=== PATIENT | female | born 1935 | race Hispanic/Latino ===

== ENCOUNTER 2020-12-14 11:40 | Inpatient (IN) | payer MEDICARE ==
--- NOTE | 2020-12-14 12:02 | Emergency Department Report ---
ED General Adult HPI - General Chief complaint: Dyspnea/Respdistress Stated complaint: SOB PUI?: Yes Time Seen by Provider: 12/14/20 12:00 Source: patient, RN notes reviewed Mode of arrival: Stretcher Limitations: Physical Limitation - History of Present Illness Initial comments: The patient was evaluated in the emergency department for symptoms described in the history of present illness. He/she was evaluated in the context of the global COVID-19 pandemic, which necessitated consideration that the patient might be at risk for infection with the virus that causes COVID-19. Institutional protocols and algorithms that pertain to the evaluation of patients at risk for COVID-19 are in a state of rapid change based on infor mation released by regulatory bodies including the CDC and federal and state organizations. These policies and algorithms were followed during the patient's care in the emergency department. Please note that these policies, procedures and recommendations changed on a rapid basis. During the entire history and physical examination, I had on complete personal protective equipment. This is an 85-year-old female. She is not known to myself previously. She lives in [facility]. She recently moved to [place] to stay with her son. She reports being on systemic anticoagulation, Eliquis, and also reports a history of CHF and hypertension, although she does not know her ejection fraction. She is also supposed to be on home oxygen, 2 to 3 L. She reports that she was recently discharged from [facility] a few weeks/months ago, on home oxygen. However, she recently moved to [place], to stay with family, and reports that for the past 2 weeks, she has been without home oxygen, as she forgot to bring her oxygen cord, and she thinks it might have broken. The patient presents to the ER today with a complaint of acute on chronic shortness of breath. She has no physical pain, but has orthopnea, and feels like she cannot breathe. She denies travel, surgery, immobilization, and she endorses compliance with systemic anticoagulation. She has received 1 round of [employer] Covid vaccination. She denies loss of taste and smell. Shortness of breath increases with physical exertion and decreases with rest. She reports that she is absolutely not able to sleep flat. She does not feel that she has gained weight. -: Gradual, days(s) Severity scale (0 -10): 0 Consistency: constant Improves with: rest Worsens with: movement - Related Data Home Medications Medication Instructions Recorded Confirmed Last Taken Divalproex ER [DepaKOTE ER] 250 mg PO 12/14/20 Unknown Allergies Allergy/AdvReac Type Severity Reaction Status Date / Time Sulfa (Sulfonamide Allergy Unknown Unknown Verified 12/14/20 12:02 Antibiotics) ED Review of Systems ROS: Stated complaint: SOB Other details as noted in HPI Constitutional: malaise, weakness, other (Denies loss of taste and smell). denies: fever ENT: congestion Respiratory: orthopnea, shortness of breath, SOB with exertion, SOB at rest. denies: cough Cardiovascular: dyspnea on exertion, orthopnea. denies: chest pain Gastrointestinal: denies: nausea, vomiting, hematemesis, melena Genitourinary: denies: dysuria Musculoskeletal: back pain (Chronic back pain) Neurological: weakness Psychiatric: anxiety Hematological/Lymphatic: denies: easy bleeding ED Past Medical Hx - Social History Smoking Status: Never Smoker - Medications Home Medications: Home Medications Medication Instructions Recorded Confirmed Last Taken Type Divalproex ER [DepaKOTE ER] 250 mg PO 12/14/20 Unknown History ED Physical Exam - General Limitations: Physical Limitation General appearance: alert, anxious, in distress, obese - Head Head exam: Present: atraumatic, normocephalic - Eye Eye exam: Present: normal appearance, EOMI. Absent: nystagmus - ENT ENT exam: Present: normal exam, normal orophraynx, mucous membranes moist, nor mal external ear exam - Neck Neck exam: Present: normal inspection, full ROM - Respiratory Respiratory exam: Present: respiratory distress, rales, rhonchi, accessory muscle use - Cardiovascular Cardiovascular Exam: Present: regular rate, normal rhythm, normal heart sounds, JVD. Absent: bradycardia, tachycardia, irregular rhythm, systolic murmur, diastolic murmur, rubs, gallop - GI/Abdominal GI/Abdominal exam: Present: soft. Absent: distended, tenderness, guarding, rebound, rigid, pulsatile mass - Extremities Exam Extremities exam: Present: normal inspection, full ROM, other (2+ pulses noted in the bilateral upper and lower extremities. There is no palpable cord. negative Homans sign. Muscular compartments are soft. The pelvis is stable.). Absent: pedal edema, calf tenderness - Back Exam Back exam: Present: normal inspection, full ROM. Absent: tenderness, CVA tenderness (R), CVA tenderness (L), paraspinal tenderness, vertebral tenderness - Neurological Exam Neurological exam: Present: alert, other (No facial droop. Tongue midline. Extraocular movements intact bilaterally. Facial sensation intact to light touch in V1, V2, V3 distribution bilaterally. 5 and a 5 strength in 4 extremities. Sensation intact to light touch in 4 extremities.) - Psychiatric Psychiatric exam: Present: anxious - Skin Skin exam: Present: warm, dry, intact, normal color. Absent: rash ED Course Vital Signs 12/14/20 12/14/20 12/14/20 11:54 11:55 12:01 Temperature 98.2 F Pulse Rate 79 74 Respiratory 27 H 29 H Rate Blood Pressure O2 Sat by Pulse 100 100 Oximetry 12/14/20 12/14/20 12/14/20 12:15 12:31 12:39 Temperature Pulse Rate 83 73 Respiratory 22 21 18 Rate Blood Pressure 198/90 O2 Sat by Pulse 95 99 Oximetry 12/14/20 12/14/20 12/14/20 12:45 13:01 13:17 Temperature Pulse Rate 69 67 Respiratory 25 H 25 H Rate Blood Pressure 174/70 174/72 O2 Sat by Pulse 100 100 97 Oximetry - Reevaluation(s) Reevaluation #1: 12/14/20 14:32 Arterial blood gas demonstrates the following findings: pH 7.421/PaCO2 40.2/PaO2 77/HCO3 25.5. ED Medical Decision Making - Lab Data Result diagrams: 12/14/20 12:20 12/14/20 12:20 Vital Signs 12/14/20 12/14/20 12/14/20 11:54 11:55 12:01 Temperature 98.2 F Pulse Rate 79 74 Respiratory 27 H 29 H Rate Blood Pressure O2 Sat by Pulse 100 100 Oximetry 12/14/20 12/14/20 12/14/20 12:15 12:31 12:39 Temperature Pulse Rate 83 73 Respiratory 22 21 18 Rate Blood Pressure 198/90 O2 Sat by Pulse 95 99 Oximetry 12/14/20 12/14/20 12/14/20 12:45 13:01 13:17 Temperature Pulse Rate 69 67 Respiratory 25 H 25 H Rate Blood Pressure 174/70 174/72 O2 Sat by Pulse 100 100 97 Oximetry Lab Results 12/14/20 12/14/20 12/14/20 Range/Units 12:20 12:20 12:20 WBC 7.6 (4.5-11.0) K/mm3 RBC 4.24 (3.65-5.03) M/mm3 Hgb 12.3 (10.1-14.3) gm/dl Hct 36.5 (30.3-42.9) % MCV 86 (79-97) fl MCH 29 (28-32) pg MCHC 34 (30-34) % RDW 14.9 (13.2-15.2) % Plt Count 186 (140-440) K/mm3 Lymph % (Auto) 36.1 H (13.4-35.0) % [place] % (Auto) 11.6 H (0.0-7.3) % Eos % (Auto) 3.6 (0.0-4.3) % Baso % (Auto) 0.4 (0.0-1.8) % Lymph # (Auto) 2.8 (1.2-5.4) K/mm3 [place] # (Auto) 0.9 H (0.0-0.8) K/mm3 Eos # (Auto) 0.3 (0.0-0.4) K/mm3 Baso # (Auto) 0.0 (0.0-0.1) K/mm3 Seg Neutrophils % 48.3 (40.0-70.0) % Seg Neutrophils # 3.7 (1.8-7.7) K/mm3 PT 15.3 H (12.2-14.9) Sec. INR 1.16 H (0.87-1.13) D-Dimer 157.23 (0-234) ng/mlDDU Sodium 139 (137-145) mmol/L Potassium 4.3 (3.6-5.0) mmol/L Chloride 101.8 (98-107) mmol/L Carbon Dioxide 28 (22-30) mmol/L Anion Gap 14 mmol/L BUN 16 (7-17) mg/dL Creatinine 0.5 L (0.6-1.2) mg/dL Estimated GFR > 60 ml/min BUN/Creatinine Ratio 32 % Glucose 89 (65-100) mg/dL Lactic Acid (0.7-2.0) mmol/L Calcium 9.1 (8.4-10.2) mg/dL Magnesium 1.60 L (1.7-2.3) mg/dL Ferritin (10.0-200.0) ng/mL Total Bilirubin 0.50 (0.1-1.2) mg/dL AST 17 (5-40) units/L ALT 9 (7-56) units/L Alkaline Phosphatase 53 (35-129) units/L Lactate Dehydrogenase 152 (91-180) units/L Total Creatine Kinase 20 L (30-135) units/L Troponin T < 0.010 (0.00-0.029) ng/mL C-Reactive Protein 0.20 (0.00-1.30) mg/dL NT-Pro-B Natriuret Pep 887.9 (0-900) pg/mL Total Protein 6.8 (6.3-8.2) g/dL Albumin 3.7 L (3.9-5) g/dL Albumin/Globulin Ratio 1.2 % Procalcitonin (<0.15) ng/mL 12/14/20 12/14/20 12/14/20 Range/Units 12:20 12:20 12:20 WBC (4.5-11.0) K/mm3 RBC (3.65-5.03) M/mm3 Hgb (10.1-14.3) gm/dl Hct (30.3-42.9) % MCV (79-97) fl MCH (28-32) pg MCHC (30-34) % RDW (13.2-15.2) % Plt Count (140-440) K/mm3 Lymph % (Auto) (13.4-35.0) % [place] % (Auto) (0.0-7.3) % Eos % (Auto) (0.0-4.3) % Baso % (Auto) (0.0-1.8) % Lymph # (Auto) (1.2-5.4) K/mm3 [place] # (Auto) (0.0-0.8) K/mm3 Eos # (Auto) (0.0-0.4) K/mm3 Baso # (Auto) (0.0-0.1) K/mm3 Seg Neutrophils % (40.0-70.0) % Seg Neutrophils # (1.8-7.7) K/mm3 PT (12.2-14.9) Sec. INR (0.87-1.13) D-Dimer (0-234) ng/mlDDU Sodium (137-145) mmol/L Potassium (3.6-5.0) mmol/L Chloride (98-107) mmol/L Carbon Dioxide (22-30) mmol/L Anion Gap mmol/L BUN (7-17) mg/dL Creatinine (0.6-1.2) mg/dL Estimated GFR ml/min BUN/Creatinine Ratio % Glucose (65-100) mg/dL Lactic Acid 1.20 (0.7-2.0) mmol/L Calcium (8.4-10.2) mg/dL Magnesium (1.7-2.3) mg/dL Ferritin 58.4 (10.0-200.0) ng/mL Total Bilirubin (0.1-1.2) mg/dL AST (5-40) units/L ALT (7-56) units/L Alkaline Phosphatase (35-129) units/L Lactate Dehydrogenase (91-180) units/L Total Creatine Kinase (30-135) units/L Troponin T (0.00-0.029) ng/mL C-Reactive Protein (0.00-1.30) mg/dL NT-Pro-B Natriuret Pep (0-900) pg/mL Total Protein (6.3-8.2) g/dL Albumin (3.9-5) g/dL Albumin/Globulin Ratio % Procalcitonin < 0.05 (<0.15) ng/mL - EKG Data -: EKG Interpreted by Fl EKG shows normal: sinus rhythm Rate: normal - EKG Data When compared to previous EKG there are: previous EKG unavailable 12/14/20 14:00 EKG interpreted at 12: 10 Sinus rhythm, 73 bpm. Normal axis, QTC 434 ms, motion artifact, premature atrial complex, abnormal EKG, not a STEMI. No prior for comparison. - Radiology Data Radiology results: pending, report reviewed, image reviewed [facility] [address] [place] [address] XRay Report Signed Patient: BABATUNDE LEON MR#: [id number] : 1935 Acct:[id number] Age/Sex: 85 / F ADM Date: 12/14/20 Loc: ED Attending Dr: Ordering Physician: STEPH KHAN MD Date of Service: 12/14/20 Procedure(s): XR chest 1V ap Accession Number(s): [id number] cc: STEPH KHAN MD Fluoro Time In Minutes: CHEST 1 VIEW INDICATION: Dyspnea. COMPARISON: None FINDINGS: Support devices: None. Heart: Within normal limits. Lungs/Pleura: No acute air space or interstitial disease. No pleural effusion or pneumothorax. The right hemidiaphragm is elevated or eventrated. Additional findings: None. IMPRESSION: Elevated right hemidiaphragm, otherwise, unremarkable exam. Signer Name: Mouna Cooper Jr, MD Signed: 12/14/2020 12:37 PM Workstation Name: [id number] Transcribed By: TTR Dictated By: MOUNA COOPER JR, MD Electronically Authenticated By: MOUNA COOPER JR, MD Signed Date/Time: 12/14/20 1237 DD/ 1236 TD/TT: - Medical Decision Making Differential diagnosis, including but not limited to: COVID-19, CHF, reactive airways disease, pneumonia, pulmonary embolism Assessment and plan: 85-year-old female, who is tachypneic, with JVD, crackles, rales, orthopnea, shortness of breath/dyspnea, who is systemically anticoagulated, who reports compliance with her medications, without DVT or p ulmonary embolism risk factors, negative D-dimer, low risk by Wells criteria for pulmonary embolism, who has completed 1 round of COVID-19 vaccination, presenting with acute shortness of breath, and the aforementioned physical exam findings, suspicious for CHF exacerbation, versus less likely reactive airways disease. Patient may have a component of undiagnosed obstructive sleep apnea as well. She is also home oxygen dependent and does not have home oxygen. Given acute symptomatology, elevated blood pressure, physical exam findings, admit for diuresis, reinitiation of medications, reinitiation of oxygen therapy. Patient is amenable to this plan of care. Place patient on isolation, although I think Covid is unlikely. Patient is amenable to this plan of care. Hospital physician, Dr. Dutton to admit patient to the medical service Critical Care Time: Yes Critical care time in (mins) excluding proc time.: 35 Critical care attestation.: If time is entered above; I have spent that time in minutes in the direct care of this critically ill patient, excluding procedure time. ED Disposition Clinical Impression: Acute exacerbation of CHF (congestive heart failure), Hypertensive urgency, Hypomagnesemia, Suspected 2019 novel coronavirus infection, Acute dyspnea Disposition: OP ADMIT IP TO THIS HOSP Is pt being admited?: Yes Does the pt Need Aspirin: No Condition: Good Referrals: PRIMARY CARE, [Primary Care Provider] - 3-5 Days
--- NOTE | 2020-12-14 12:41 | XRay Report ---
CHEST 1 VIEW INDICATION: Dyspnea. COMPARISON: None FINDINGS: Support devices: None. Heart: Within normal limits. Lungs/Pleura: No acute air space or interstitial disease. No pleural effusion or pneumothorax. The ri ght hemidiaphragm is elevated or eventrated. Additional findings: None. IMPRESSION: Elevated right hemidiaphragm, otherwise, unremarkable exam. Signer Name: Goran Cooper Jr, MD Signed: 12/14/2020 12:37 PM Workstation Name: [id number]
[2020-12-14 13:10] LABS: INR 1.16 (0.87-1.13)
[2020-12-14 13:11] LABS: Basophils % (Auto) 0.4 % (0.0-1.8); Eosinophils # (Auto) 0.3 K/mm3 (0.0-0.4); Eosinophils % (Auto) 3.6 % (0.0-4.3); Hematocrit 36.5 % (30.3-42.9); Hemoglobin 12.3 gm/dl (10.1-14.3); Lymphocytes # (Auto) 2.8 K/mm3 (1.2-5.4); Lymphocytes % (Auto) 36.1 % (13.4-35.0); Mean Corpuscular HGB Conc 34 % (30-34); Mean Corpuscular Volume 86 fl (79-97); Monocytes # (Auto) 0.9 K/mm3 (0.0-0.8); Monocytes % (Auto) 11.6 % (0.0-7.3); Platelet Count 186 K/mm3 (140-440); Red Blood Count 4.24 M/mm3 (3.65-5.03); Red Cell Distribution Width 14.9 % (13.2-15.2)
[2020-12-14 13:18] LABS: Alanine Aminotransferase 9 units/L (7-56); Albumin 3.7 g/dL (3.9-5); Blood Urea Nitrogen 16 mg/dL (7-17); Calcium 9.1 mg/dL (8.4-10.2); Hemolysis Index 1
[2020-12-14 13:19] LABS: BUN/Creatinine Ratio 32
[2020-12-14] MEDS ORDERED: MAGNESIUM SULFATE 2 GM/50 ML BAG IV ONE (13:33)
[2020-12-14] MEDS ORDERED: FUROSEMIDE 40 MG/4 ML INJ IV ONE (13:33)
[2020-12-14] MEDS ORDERED: hydrALAZINE 20 MG/1 ML INJ IV ONE (13:33)
[2020-12-14] MEDS ORDERED: ALBUTEROL 2.5 MG/3 ML NEBU IH ONE (13:56)
[2020-12-14] MEDS ORDERED: IPRATROPIUM 0.02% NEBU 2.5 ML IH ONE (13:56)
--- NOTE | 2020-12-14 14:28 | History and Physical Report ---
History of Present Illness Chief complaint: I am short of breath History of present illness: 85 YO Female with CHF, HTN, Seizure Disorder, Chronic Respiratory Failure noncompliant with home oxygen presents to ED for evaluation. Patient reports "I feel short of breath". Patient states that she has experienced shortness of breath and generalized weakness over the past 2 weeks with worsening symptoms over the same timeframe. Pt acknowledges noncompliance with home oxygen. Patient knowledges dyspnea on exertion, dyspnea at rest, decreased exercise tolerance, orthopnea, as well as paroxysmal nocturnal dyspnea. EMS notified and upon arrival the patient was found to be in distress and subsequent transported to [facility] for further care and evaluation of the above aforementioned symptoms. The patient was seen and evaluated in the emergency department. All lab and imaging studies reviewed. Patient found to have symptoms consistent with CHF decompensation suspected secondary to lack of supplemental oxygen. Patient placed in observation status and admitted to telemetry floor. Patient placed on submental oxygen. Patient denies fever, chills, chest pain, palpitation, productive cough, skin rash, recent ill contact, or known exposure to COVID-19. No prior admission for review. All medication listed at time of admission has been reconciled. Advanced care planning conducted in ED. Past History Past Medical History: heart failure, hypertension, seizures, other (See HPI) Past Surgical History: No surgical history, Other (Reviewed) Social history: single. denies: smoking, alcohol abuse, prescription drug abuse Family history: hypertension (This morning) Medications and Allergies Allergies Allergy/AdvReac Type Severity Reaction Status Date / Time Sulfa (Sulfonamide Allergy Unknown Unknown Verified 12/14/20 12:02 Antibiotics) Home Medications Medication Instructions Recorded Confirmed Last Taken Type Divalproex ER [DepaKOTE ER] 250 mg PO 12/14/20 Unknown History Review of Systems Constitutional: weakness, no weight loss, no weight gain, no fever, no chills Ears, nose, mouth and throat: no ear pain, no ear discharge, no tinnitis, no decreased hearing, no nose pain, no nasal congestion Breasts: no change in shape, no swelling, no mass Cardiovascular: orthopnea, shortness of breath, dyspnea on exertion, paroxysmal nocturnal dyspnea, decreased exercise tolerance, no chest pain, no palpitations, no rapid/irregular heart beat, no edema, no syncope Respiratory: no cough, no cough with sputum, no excessive sputum Gastrointestinal: no nausea, no vomiting, no diarrhea, no constipation Genitourinary Female: no dysmenorrhea, no pelvic pain, no flank pain, no dysuria, no urinary frequency, no urgency Rectal: no pain, no incontinence, no bleeding Musculoskeletal: no neck stiffness, no neck pain, no arm numbness/tingling, no low back pain, no leg numbness/tingling Integumentary: no rash, no pruritis, no redness, no sores Neurological: no paralysis, no weakness, no parathesias, no numbness, no tingling, no seizures, no syncope Psychiatric: anxiety, no memory loss, no sleep disturbances, no hypersomnia, no change in libido Endocrine: no cold intolerance, no heat intolerance, no excessive thirst, no excessive sweating Hematologic/Lymphatic: no easy bruising, no easy bleeding Allergic/Immunologic: no urticaria, no wheezing Exam - Constitutional Vitals: Temp Pulse Resp BP Pulse Ox 98.2 F 67 25 H 174/72 97 12/14/20 11:55 12/14/20 13:01 12/14/20 13:01 12/14/20 13:01 12/14/20 13:17 General appearance: Present: mild distress - EENT Eyes: Present: PERRL ENT: hearing intact, clear oral mucosa - Neck Neck: Present: supple, normal ROM, masses or JVD - Respiratory Respiratory effort: labored, accessory muscle use Respiratory: bilateral: diminished, rales - Cardiovascular Heart Sounds: Present: S1 & S2. Absent: rub, click - Extremities Extremities: pulses symmetrical Extremity abnormal: edema Peripheral Pulses: within normal limits - Abdominal General gastrointestinal: Present: soft, non-tender, non-distended, normal bowel sounds Female genitourinary: Present: normal - Integumentary Integumentary: Present: clear, warm, dry - Musculoskeletal Musculoskeletal: gait normal, strength equal bilaterally - Psychiatric Psychiatric: appropriate mood/affect, intact judgment & insight - Neurologic Neurologic: CNII-XII intact, moves all extremities HEART Score - HEART Score Troponin: Troponin T < 0.010 ng/mL (0.00-0.029) 12/14/20 12:20 Results - Labs CBC & Chem 7: 12/14/20 12:20 12/14/20 12:20 Labs: Abnormal lab results 12/14/20 12/14/20 12/14/20 Range/Units 12:20 12:20 12:20 Lymph % (Auto) 36.1 H (13.4-35.0) % [place] % (Auto) 11.6 H (0.0-7.3) % [place] # (Auto) 0.9 H (0.0-0.8) K/mm3 PT 15.3 H (12.2-14.9) Sec. INR 1.16 H (0.87-1.13) Creatinine 0.5 L (0.6-1.2) mg/dL Magnesium 1.60 L (1.7-2.3) mg/dL Total Creatine Kinase 20 L (30-135) units/L Albumin 3.7 L (3.9-5) g/dL Assessment and Plan - Patient Problems (1) Acute exacerbation of CHF (congestive heart failure) Current Visit: Yes Status: Acute Qualifiers: Heart failure type: diastolic Qualified Code(s): I50.33 - Acute on chronic diastolic (congestive) heart failure Plan to address problem: Strict I's/O, monitor urine output every shift, diuresis with Lasix, supplemental oxygen, pulse oximetry, afterload reduction, blood pressure control. (2) Acute dyspnea Current Visit: Yes Status: Acute Plan to address problem: Supplemental oxygen, pulse oximetry, home oxygen evaluation, (3) Hypertensive urgency Current Visit: Yes Status: Acute Plan to address problem: Monitor blood pressure every shift, continue medical management. (4) DVT prophylaxis Current Visit: Yes Status: Acute Plan to address problem: SCD to bilateral lower extremities while in bed, patient is ambulatory (5) Advance care planning Current Visit: Yes Status: Acute Plan to address problem: Disease education conducted, care plan discussed, diagnosis discussed, patient counseled regarding compliance with submental oxygen, patient is full code, patient knowledges understanding and agreement with care plan, +30 minutes.
[2020-12-14] MEDS ORDERED: ALBUTEROL 2.5 MG/3 ML NEBU IH PRN (14:50)
[2020-12-14] MEDS ORDERED: ONDANSETRON 4 MG/2 ML INJ IV PRN (14:50)
[2020-12-14] MEDS ORDERED: ALPRAZolam 0.5 MG TAB PO PRN (14:52)
[2020-12-14] MEDS: ACETAMINOPHEN 325 MG TAB PO PRN (19:45)
[2020-12-14] MEDS: FUROSEMIDE 20 MG/2 ML INJ IV SCH (19:50)
[2020-12-15] MEDS: FUROSEMIDE 20 MG/2 ML INJ IV SCH ×2 (05:21→17:50)
[2020-12-15 06:26] LABS: BUN/Creatinine Ratio 24; Blood Urea Nitrogen 12 mg/dL (7-17); Calcium 9.1 mg/dL (8.4-10.2); Hemolysis Index 12
[2020-12-15 07:59] LABS: Bacteria,Urine 1+ /HPF (Negative); Bilirubin,Urine NEG (Negative); Blood,Urine MOD (Negative); Color,Urine Yellow (Yellow); Protein,Urine <15 mg/dL mg/dL (Negative); Urobilinogen,Urine < 2.0 mg/dL (<2.0)
--- NOTE | 2020-12-15 08:48 | Progress Note ---
Assessment and Plan Assessment and plan: (1) Acute exacerbation of CHF (congestive heart failure) Current Visit: Yes Status: Acute Qualifiers: Heart failure type: diastolic Qualified Code(s): I50.33 - Acute on chronic diastolic (congestive) heart failure Plan to address problem: Strict I's/O, monitor urine output every shift, diuresis with Lasix, supplemental oxygen, pulse oximetry, afterload reduction, blood pressure control. (2) Acute dyspnea Current Visit: Yes Status: Acute Plan to address problem: Supplemental oxygen, pulse oximetry, home oxygen evaluation, (3) Hypertensive urgency Current Visit: Yes Status: Acute Plan to address problem: Monitor blood pressure every shift, continue medical management. (4) DVT prophylaxis Current Visit: Yes Status: Acute Plan to address problem: SCD to bilateral lower extremities while in bed, patient is ambulatory (5) Advance care planning Current Visit: Yes Status: Acute Plan to address problem: Disease education conducted, care plan discussed, diagnosis discussed, patient counseled regarding compliance with submental oxygen, patient is full code, guerrero ent knowledges understanding and agreement with care plan, +30 minutes. 12/15/20 -CHF; no echo in the chart. Echo ordered. -Patient moved from [facility] and need a glass handler. Cardiology consult placed. -We will get records from [facility]. Patient states she has history of congestive heart failure. -PT OT evaluation History Interval history: patient was seen and evaluated this morning Patient was on 3 L of oxygen She states she was using 2 L of oxygen at home Hospitalist Physical - Physical exam Narrative exam: Not in cardiopulmonary distress. The patient appeared well nourished and normally developed. Vital signs as documented. Head exam is unremarkable. No scleral icterus . Neck is without jugular venous distension, thyromegaly, or carotid bruits. Lungs are clear to auscultation. Cardiac exam reveals regular rate and Rhythm. Abdominal exam reveals normal bowel sounds, nontender, no organomegaly. Extremities are nonedematous and both femoral and pedal pulses are normal. MULTIMEDIA PROGRAMMER: Alert and oriented 3. No focal weakness. - Constitutional Vitals: Temp Pulse Resp BP Pulse Ox 97.7 F 70 18 169/74 100 12/15/20 05:30 12/15/20 05:30 12/15/20 05:30 12/15/20 05:30 12/15/20 05:30 General appearance: Present: mild distress HEART Score - HEART Score Troponin: Troponin T < 0.010 ng/mL (0.00-0.029) 12/14/20 12:20 Results - Labs CBC & Chem 7: 12/14/20 12:20 12/15/20 05:21 Labs: Laboratory Last Values WBC 7.6 K/mm3 (4.5-11.0) 12/14/20 12:20 RBC 4.24 M/mm3 (3.65-5.03) 12/14/20 12:20 Hgb 12.3 gm/dl (10.1-14.3) 12/14/20 12:20 Hct 36.5 % (30.3-42.9) 12/14/20 12:20 MCV 86 fl (79-97) 12/14/20 12:20 MCH 29 pg (28-32) 12/14/20 12:20 MCHC 34 % (30-34) 12/14/20 12:20 RDW 14.9 % (13.2-15.2) 12/14/20 12:20 Plt Count 186 K/mm3 (140-440) 12/14/20 12:20 Lymph % (Auto) 36.1 % (13.4-35.0) H 12/14/20 12:20 [place] % (Auto) 11.6 % (0.0-7.3) H 12/14/20 12:20 Eos % (Auto) 3.6 % (0.0-4.3) 12/14/20 12:20 Baso % (Auto) 0.4 % (0.0-1.8) 12/14/20 12:20 Lymph # (Auto) 2.8 K/mm3 (1.2-5.4) 12/14/20 12:20 [place] # (Auto) 0.9 K/mm3 (0.0-0.8) H 12/14/20 12:20 Eos # (Auto) 0.3 K/mm3 (0.0-0.4) 12/14/20 12:20 Baso # (Auto) 0.0 K/mm3 (0.0-0.1) 12/14/20 12:20 Seg Neutrophils % 48.3 % (40.0-70.0) 12/14/20 12:20 Seg Neutrophils # 3.7 K/mm3 (1.8-7.7) 12/14/20 12:20 PT 15.3 Sec. (12.2-14.9) H 12/14/20 12:20 INR 1.16 (0.87-1.13) H 12/14/20 12:20 D-Dimer 157.23 ng/mlDDU (0-234) 12/14/20 12:20 Sodium 140 mmol/L (137-145) 12/15/20 05:21 Potassium 3.6 mmol/L (3.6-5.0) 12/15/20 05:21 Chloride 96.7 mmol/L (98-107) L 12/15/20 05:21 Carbon Dioxide 36 mmol/L (22-30) H D 12/15/20 05:21 Anion Gap 11 mmol/L 12/15/20 05:21 BUN 12 mg/dL (7-17) 12/15/20 05:21 Creatinine 0.5 mg/dL (0.6-1.2) L 12/15/20 05:21 Estimated GFR > 60 ml/min 12/15/20 05:21 BUN/Creatinine Ratio 24 % 12/15/20 05:21 Glucose 87 mg/dL (65-100) 12/15/20 05:21 Lactic Acid 1.20 mmol/L (0.7-2.0) 12/14/20 12:20 Calcium 9.1 mg/dL (8.4-10.2) 12/15/20 05:21 Magnesium 1.70 mg/dL (1.7-2.3) 12/14/20 14:56 Ferritin 58.4 ng/mL (10.0-200.0) 12/14/20 12:20 Total Bilirubin 0.50 mg/dL (0.1-1.2) 12/14/20 12:20 AST 17 units/L (5-40) 12/14/20 12:20 ALT 9 units/L (7-56) 12/14/20 12:20 Alkaline Phosphatase 53 units/L (35-129) 12/14/20 12:20 Lactate Dehydrogenase 152 units/L (91-180) 12/14/20 12:20 Total Creatine Kinase 20 units/L (30-135) L 12/14/20 12:20 Troponin T < 0.010 ng/mL (0.00-0.029) 12/14/20 12:20 C-Reactive Protein 0.20 mg/dL (0.00-1.30) 12/14/20 12:20 NT-Pro-B Natriuret Pep 887.9 pg/mL (0-900) 12/14/20 12:20 Total Protein 6.8 g/dL (6.3-8.2) 12/14/20 12:20 Albumin 3.7 g/dL (3.9-5) L 12/14/20 12:20 Albumin/Globulin Ratio 1.2 % 12/14/20 12:20 Procalcitonin < 0.05 ng/mL (<0.15) 12/14/20 12:20 Urine Color Yellow (Yellow) 12/15/20 07:24 Urine Turbidity Clear (Clear) 12/15/20 07:24 Urine pH 7.0 (5.0-7.0) 12/15/20 07:24 Ur Specific [place] 1.006 (1.003-1.030) 12/15/20 07:24 Urine Protein <15 mg/dl mg/dL (Negative) 12/15/20 07:24 Urine Glucose (UA) Neg mg/dL (Negative) 12/15/20 07:24 Urine Ketones Neg mg/dL (Negative) 12/15/20 07:24 Urine Blood Mod (Negative) 12/15/20 07:24 Urine Nitrite Pos (Negative) 12/15/20 07:24 Urine Bilirubin Neg (Negative) 12/15/20 07:24 Urine Urobilinogen < 2.0 mg/dL (<2.0) 12/15/20 07:24 Ur Leukocyte Esterase Tr (Negative) 12/15/20 07:24 Urine WBC (Auto) 3.0 /HPF (0.0-6.0) 12/15/20 07:24 Urine RBC (Auto) 8.0 /HPF (0.0-6.0) 12/15/20 07:24 Urine Bacteria (Auto) 1+ /HPF (Negative) 12/15/20 07:24 Calvin/IV: Voiding Method External Female Catheter Active Medications - Current Medications Current Medications: Generic Name Dose Route Start Last Admin Trade Name Freq PRN Reason Stop Dose Admin Acetaminophen 650 mg 12/14/20 14:50 12/14/20 19:45 Acetaminophen 325 Mg Tab PO 650 mg Q4H PRN Administration Pain MILD(1-3)/Fever >100.5/GOMEZ Albuterol 2.5 mg 12/14/20 14:50 Albuterol 2.5 Mg/3 Ml Nebu IH Q4HRT PRN Shortness Of Breath Alprazolam 0.5 mg 12/14/20 14:52 Alprazolam 0.5 Mg Tab PO Q8H PRN Anxiety Furosemide 20 mg 12/14/20 18:00 12/15/20 05:21 Furosemide 20 Mg/2 Ml Inj IV 20 mg BID@0600,1800 KIERA Administration Ondansetron HCl 4 mg 12/14/20 14:50 Ondansetron 4 Mg/2 Ml Inj IV Q8H PRN Nausea And Vomiting Sodium Chloride 10 ml 12/14/20 22:00 12/14/20 22:00 Sodium Chloride 0.9% 10 Ml Flush Syringe IV 10 ml BID KIERA Administration Sodium Chloride 10 ml 12/14/20 14:50 Sodium Chloride 0.9% 10 Ml Flush Syringe IV PRN PRN LINE FLUSH
--- NOTE | 2020-12-15 10:15 | Electrocardiograph Report ---
[facility] Test Date: 2020-12-14 Test Time: 12:10:39 Pat Name: BABATUNDE LEON Department: Room: A485 1 Gender: F Mental Health Technician: TAIWO : 1935 Requested By: STEPH KHAN Order Number: [id number] Reading MD: Edin Lisa Measurements Intervals [place] Rate: 73 P: 28 IA: 159 QRS: 5 QRSD: 76 T: 2 QT: 393 QTc: 434 Interpretive Statements Sinus rhythm Atrial premature complex No previous ECG available for comparison Electronically Signed On 12-15-2020 10:14:36 EDT by Edin Lisa
[2020-12-15] MEDS ORDERED: ALUM-MAG HYDROXIDE-SIMETHICONE 200-200-20MG/5ML ORAL LIQD 30 ML PO PRN (21:16)
--- NOTE | 2020-12-16 01:23 | Consultation ---
DATE OF CONSULTATION: 12/15/2020 HISTORY OF PRESENT ILLNESS: The patient is an 85-year-old female who presented with shortness of breath. She recently moved here from [place] and has a history of congestive heart failure as well as hypertension, Coumadin therapy, seizure disorder. She is on home oxygen. She describes orthopnea, PND and edema. She is not a very good historian. Most of the history was obtained from the medical record. She states that the blood pressure has been okay. She is inactive. There has been no chest pain or coronary artery disease. There have been no strokes or focal neurologic deficits. She does not give a clear history, but she may have had abnormal rhythms in the past. There is no history of smoking or peripheral vascular disease. There is no history of lung disease. There has been no sputum production or fever. PAST HISTORY: ALLERGIES: SULFA DRUGS. SOCIAL HISTORY: Smoking: None. Alcohol, no heavy use. FAMILY HISTORY: Hypertension. No other details are available. OPERATIONS: None described. REVIEW OF SYSTEMS: There is a history of seizures, although the patient is not aware of this. No GI symptoms are described. No severe arthritis symptoms are described. No history of cancer is described. PHYSICAL EXAMINATION: GENERAL: Well-developed, well-nourished, no acute distress. Alert , cooperative. She knows the date, but she has very limited memory of her past medical history details. NECK: Reveals JVD. There are no bruits or carotid upstroke delay. No masses. LUNGS: Diminished breath sounds, no rales or rhonchi at this time. No labored respirations. HEART: Regular rhythm, S4 gallop, grade I systolic murmur. ABDOMEN: Soft, nontender, no masses. Somewhat overweight. EXTREMITIES: No cyanosis, clubbing. There is mild pedal edema. Peripheral pulses are intact. NEUROLOGIC: Deferred. SKIN: Clear. IMAGING: EKG, no acute electrocardiographic changes. IMPRESSION: 1. Recurrent congestive heart failure, possibly secondary to hypertensive heart disease, improving. 2. Hypertension: Labile since admission. 3. Coumadin therapy; suspect she may have paroxysmal atrial fibrillation, we will obtain previous medical records. 4. History of seizures. 5. Possible mild dementia. 6. Obesity. PLAN: Treat for congestive heart failure. Carefully add carvedilol and losartan to the medical regimen. Try to obtain previous records. Treat conservatively given this patient's age. Thank you for this consultation. TID: [id number] RECEIPT: [id number] DONNA/TISHA
[2020-12-16 05:52] LABS: Blood Urea Nitrogen 16 mg/dL (7-17); Calcium 9.1 mg/dL (8.4-10.2); Hemolysis Index 23
[2020-12-16 05:59] LABS: BUN/Creatinine Ratio 27
[2020-12-16] MEDS: FUROSEMIDE 20 MG/2 ML INJ IV SCH ×2 (06:12→17:40)
--- NOTE | 2020-12-16 08:42 | Progress Note ---
Assessment and Plan Assessment and plan: (1) Acute exacerbation of CHF (congestive heart failure) Current Visit: Yes Status: Acute Qualifiers: Heart failure type: diastolic Qualified Code(s): I50.33 - Acute on chronic diastolic (congestive) heart failure Plan to address problem: Strict I's/O, monitor urine output every shift, diuresis with Lasix, supplemental oxygen, pulse oximetry, afterload reduction, blood pressure control. (2) Acute dyspnea Current Visit: Yes Status: Acute Plan to address problem: Supplemental oxygen, pulse oximetry, home oxygen evaluation, (3) Hypertensive urgency Current Visit: Yes Status: Acute Plan to address problem: Monitor blood pressure every shift, continue medical management. (4) DVT prophylaxis Current Visit: Yes Status: Acute Plan to address problem: SCD to bilateral lower extremities while in bed, patient is ambulatory (5) Advance care planning Current Visit: Yes Status: Acute Plan to address problem: Disease education conducted, care plan discussed, diagnosis discussed, patient counseled regarding compliance with submental oxygen, patient is full code, guerrero ent knowledges understanding and agreement with care plan, +30 minutes. 12/15/20 -CHF; no echo in the chart. Echo ordered. -Patient moved from [facility] and need a retention manager. Cardiology consult placed. -We will get records from [facility]. Patient states she has history of congestive heart failure. -PT OT evaluation 12/16/2020 -Patient has echo and showed 2 diastolic dysfunction. Cardiology consulted and recommend to start her on carvedilol. -Patient was discharged from [facility] to rehab with home oxygen but patient states she does not have enough oxygen at home -PT evaluated and recommend home health PT -We we will send the record from [facility]. Follow cardiology recommendations -Patient said she moved to [place] and she didn't have a permanent place yet. She can be discharged once she has a permanent residence with home health PT and will do her nasal cannula. History Interval history: patient was seen and evaluated this morning Patient was on 3 L of oxygen She states she was using 2 L of oxygen at home. He does have the oxygen tank but does not have the nasal cannula Hospitalist Physical - Physical exam Narrative exam: Not in cardiopulmonary distress. The patient appeared well nourished and normally developed. Vital signs as documented. Head exam is unremarkable. No scleral icterus . Neck is without jugular venous distension, thyromegaly, or carotid bruits. Lungs are clear to auscultation. Cardiac exam reveals regular rate and Rhythm. Abdominal exam reveals normal bowel sounds, nontender, no organomegaly. Extremities are nonedematous and both femoral and pedal pulses are normal. INFORMATION DIRECTOR: Alert and oriented 3. No focal weakness. - Constitutional Vitals: Temp Pulse Resp BP Pulse Ox 97.6 F 89 20 133/72 95 12/16/20 07:45 12/16/20 07:45 12/16/20 07:45 12/16/20 07:45 12/16/20 07:45 General appearance: Present: mild distress HEART Score - HEART Score Troponin: Troponin T < 0.010 ng/mL (0.00-0.029) 12/14/20 12:20 Results - Labs CBC & Chem 7: 12/14/20 12:20 12/16/20 04:18 Labs: Laboratory Last Values WBC 7.6 K/mm3 (4.5-11.0) 12/14/20 12:20 RBC 4.24 M/mm3 (3.65-5.03) 12/14/20 12:20 Hgb 12.3 gm/dl (10.1-14.3) 12/14/20 12:20 Hct 36.5 % (30.3-42.9) 12/14/20 12:20 MCV 86 fl (79-97) 12/14/20 12:20 MCH 29 pg (28-32) 12/14/20 12:20 MCHC 34 % (30-34) 12/14/20 12:20 RDW 14.9 % (13.2-15.2) 12/14/20 12:20 Plt Count 186 K/mm3 (140-440) 12/14/20 12:20 Lymph % (Auto) 36.1 % (13.4-35.0) H 12/14/20 12:20 [place] % (Auto) 11.6 % (0.0-7.3) H 12/14/20 12:20 Eos % (Auto) 3.6 % (0.0-4.3) 12/14/20 12:20 Baso % (Auto) 0.4 % (0.0-1.8) 12/14/20 12:20 Lymph # (Auto) 2.8 K/mm3 (1.2-5.4) 12/14/20 12:20 [place] # (Auto) 0.9 K/mm3 (0.0-0.8) H 12/14/20 12:20 Eos # (Auto) 0.3 K/mm3 (0.0-0.4) 12/14/20 12:20 Baso # (Auto) 0.0 K/mm3 (0.0-0.1) 12/14/20 12:20 Seg Neutrophils % 48.3 % (40.0-70.0) 12/14/20 12:20 Seg Neutrophils # 3.7 K/mm3 (1.8-7.7) 12/14/20 12:20 PT 15.3 Sec. (12.2-14.9) H 12/14/20 12:20 INR 1.16 (0.87-1.13) H 12/14/20 12:20 D-Dimer 157.23 ng/mlDDU (0-234) 12/14/20 12:20 Sodium 139 mmol/L (137-145) 12/16/20 04:18 Potassium 3.3 mmol/L (3.6-5.0) L 12/16/20 04:18 Chloride 94.3 mmol/L (98-107) L 12/16/20 04:18 Carbon Dioxide 36 mmol/L (22-30) H 12/16/20 04:18 Anion Gap 12 mmol/L 12/16/20 04:18 BUN 16 mg/dL (7-17) 12/16/20 04:18 Creatinine 0.6 mg/dL (0.6-1.2) 12/16/20 04:18 Estimated GFR > 60 ml/min 12/16/20 04:18 BUN/Creatinine Ratio 27 % 12/16/20 04:18 Glucose 111 mg/dL (65-100) H 12/16/20 04:18 Lactic Acid 1.20 mmol/L (0.7-2.0) 12/14/20 12:20 Calcium 9.1 mg/dL (8.4-10.2) 12/16/20 04:18 Magnesium 1.70 mg/dL (1.7-2.3) 12/14/20 14:56 Ferritin 58.4 ng/mL (10.0-200.0) 12/14/20 12:20 Total Bilirubin 0.50 mg/dL (0.1-1.2) 12/14/20 12:20 AST 17 units/L (5-40) 12/14/20 12:20 ALT 9 units/L (7-56) 12/14/20 12:20 Alkaline Phosphatase 53 units/L (35-129) 12/14/20 12:20 Lactate Dehydrogenase 152 units/L (91-180) 12/14/20 12:20 Total Creatine Kinase 20 units/L (30-135) L 12/14/20 12:20 Troponin T < 0.010 ng/mL (0.00-0.029) 12/14/20 12:20 C-Reactive Protein 0.20 mg/dL (0.00-1.30) 12/14/20 12:20 NT-Pro-B Natriuret Pep 887.9 pg/mL (0-900) 12/14/20 12:20 Total Protein 6.8 g/dL (6.3-8.2) 12/14/20 12:20 Albumin 3.7 g/dL (3.9-5) L 12/14/20 12:20 Albumin/Globulin Ratio 1.2 % 12/14/20 12:20 Procalcitonin < 0.05 ng/mL (<0.15) 12/14/20 12:20 Urine Color Yellow (Yellow) 12/15/20 07:24 Urine Turbidity Clear (Clear) 12/15/20 07:24 Urine pH 7.0 (5.0-7.0) 12/15/20 07:24 Ur Specific [place] 1.006 (1.003-1.030) 12/15/20 07:24 Urine Protein <15 mg/dl mg/dL (Negative) 12/15/20 07:24 Urine Glucose (UA) Neg mg/dL (Negative) 12/15/20 07:24 Urine Ketones Neg mg/dL (Negative) 12/15/20 07:24 Urine Blood Mod (Negative) 12/15/20 07:24 Urine Nitrite Pos (Negative) 12/15/20 07:24 Urine Bilirubin Neg (Negative) 12/15/20 07:24 Urine Urobilinogen < 2.0 mg/dL (<2.0) 12/15/20 07:24 Ur Leukocyte Esterase Tr (Negative) 12/15/20 07:24 Urine WBC (Auto) 3.0 /HPF (0.0-6.0) 12/15/20 07:24 Urine RBC (Auto) 8.0 /HPF (0.0-6.0) 12/15/20 07:24 Urine Bacteria (Auto) 1+ /HPF (Negative) 12/15/20 07:24 Coronavirus (PCR) Negative (Negative) 12/14/20 Unknown Calvin/IV: Voiding Method External Female Catheter Active Medications - Current Medications Current Medications: Generic Name Dose Route Start Last Admin Trade Name Freq PRN Reason Stop Dose Admin Acetaminophen 650 mg 12/14/20 14:50 12/14/20 19:45 Acetaminophen 325 Mg Tab PO 650 mg Q4H PRN Administration Pain MILD(1-3)/Fever >100.5/GOMEZ Al Hydrox/Mg Hydrox/Simethicone 30 ml 12/15/20 21:16 12/15/20 22:11 Alum-Mag Hydroxide-Simethicone 469-450-62yu/5ml Oral Liqd 30 Ml PO 30 ml Q4H PRN Administration Indigestion Albuterol 2.5 mg 12/14/20 14:50 Albuterol 2.5 Mg/3 Ml Nebu IH Q4HRT PRN Shortness Of Breath Alprazolam 0.5 mg 12/14/20 14:52 Alprazolam 0.5 Mg Tab PO Q8H PRN Anxiety Furosemide 20 mg 12/14/20 18:00 12/16/20 06:12 Furosemide 20 Mg/2 Ml Inj IV 20 mg BID@0600,1800 KIERA Administration Ondansetron HCl 4 mg 12/14/20 14:50 Ondansetron 4 Mg/2 Ml Inj IV Q8H PRN Nausea And Vomiting Potassium Chloride 40 meq 12/16/20 08:40 Potassium Chloride Er 20 Meq Tab PO 12/16/20 08:41 ONCE ONE Sodium Chloride 10 ml 12/14/20 22:00 12/15/20 22:12 Sodium Chloride 0.9% 10 Ml Flush Syringe IV 10 ml BID KIERA Administration Sodium Chloride 10 ml 12/14/20 14:50 12/15/20 11:43 Sodium Chloride 0.9% 10 Ml Flush Syringe IV 10 ml PRN PRN Administration LINE FLUSH
[2020-12-16] MEDS ORDERED: POTASSIUM CHLORIDE ER 20 MEQ TAB PO NR (09:00)
--- NOTE | 2020-12-16 13:11 | Progress Note ---
Assessment and Plan 1. Shortness of breath and dyspnea appears to have resolved 2. Essential hypertension 3. Seizure disorder 4. Chronic diastolic heart failure 5. COPD 6. Seizure disorder Plan. Admitting chest x-ray shows no acute pulmonary edema. Echocardiogram shows mild concentric LVH with abnormal diastolic relaxation normal global left ventricular ejection fraction. Patient's shortness of breath probably related to underlying chronic pulmonary pathology. Subjective Date of service: 12/16/20 Interval history: Patient is stable and denies any cardiac symptoms. Objective Vital Signs Temp Pulse Pulse Resp BP Pulse Ox 12/16/20 11:30 98.3 F 91 H 20 151/76 97 12/16/20 09:55 94 12/16/20 08:00 18 97 12/16/20 07:45 97.6 F 89 20 133/72 95 12/16/20 05:00 89 12/16/20 04:31 98.0 F 89 18 133/64 95 12/15/20 23:56 98.0 F 95 H 18 134/60 92 12/15/20 21:00 90 12/15/20 20:49 90 18 12/15/20 19:06 97.8 F 90 20 109/49 93 12/15/20 16:02 98.8 F 91 H 18 117/52 93 - Physical Examination General: Appears Well, No Apparent Distress HEENT: Positive: PERRL, Normocephaly, Mucus Membranes Moist Neck: Positive: neck supple, trachea midline. Negative: JVD/HJR Cardiac: Positive: Regular Rate, S1/S2, PMI, Dilated, Laterally Displaced Lungs: Positive: clear to auscultation, No Wheeze, Rales, Rhonchi Neuro: Positive: Grossly Intact Abdomen: Positive: Soft Extremities: Absent: edema - Labs and Meds Comprehensive Metabolic Panel 12/16/20 Range/Units 04:18 Sodium 139 (137-145) mmol/L Potassium 3.3 L (3.6-5.0) mmol/L Chloride 94.3 L (98-107) mmol/L Carbon Dioxide 36 H (22-30) mmol/L BUN 16 (7-17) mg/dL Creatinine 0.6 (0.6-1.2) mg/dL Glucose 111 H (65-100) mg/dL Calcium 9.1 (8.4-10.2) mg/dL
[2020-12-16] MEDS ORDERED: HYDROCODONE PO PRN (17:00)
[2020-12-16] MEDS ORDERED: ACETAMINOPHEN PO PRN (17:00)
[2020-12-16] MEDS: ACETAMINOPHEN 325 MG TAB PO PRN (21:43)
[2020-12-16] MEDS: APIXABAN 5 MG TAB PO SCH (21:44)
[2020-12-16] MEDS: DIVALPROEX ER 250 MG TAB PO SCH (21:44)
[2020-12-16] MEDS ORDERED: NON-FORMULARY EACH (Apixaban 5 MG Tablet) PO SCH (22:00)
[2020-12-17 06:36] LABS: Blood Urea Nitrogen 16 mg/dL (7-17); Calcium 10.1 mg/dL (8.4-10.2); Hemolysis Index 34
[2020-12-17 06:39] LABS: BUN/Creatinine Ratio 27
[2020-12-17] MEDS: FUROSEMIDE 20 MG/2 ML INJ IV SCH ×2 (07:20→17:55)
[2020-12-17] MEDS: HYDROcodone/ACETAMINOPHEN 5-325 MG TAB PO PRN ×2 (08:10→22:05)
--- NOTE | 2020-12-17 08:58 | Progress Note ---
Assessment and Plan Assessment and plan: (1) Acute exacerbation of CHF (congestive heart failure) Current Visit: Yes Status: Acute Qualifiers: Heart failure type: diastolic Qualified Code(s): I50.33 - Acute on chronic diastolic (congestive) heart failure Plan to address problem: Strict I's/O, monitor urine output every shift, diuresis with Lasix, supplemental oxygen, pulse oximetry, afterload reduction, blood pressure control. (2) Acute dyspnea Current Visit: Yes Status: Acute Plan to address problem: Supplemental oxygen, pulse oximetry, home oxygen evaluation, (3) Hypertensive urgency Current Visit: Yes Status: Acute Plan to address problem: Monitor blood pressure every shift, continue medical management. (4) DVT prophylaxis Current Visit: Yes Status: Acute Plan to address problem: SCD to bilateral lower extremities while in bed, patient is ambulatory (5) Advance care planning Current Visit: Yes Status: Acute Plan to address problem: Disease education conducted, care plan discussed, diagnosis discussed, patient counseled regarding compliance with submental oxygen, patient is full code, guerrero ent knowledges understanding and agreement with care plan, +30 minutes. 12/15/20 -CHF; no echo in the chart. Echo ordered. -Patient moved from [facility] and need a group manager. Cardiology consult placed. -We will get records from [facility]. Patient states she has history of congestive heart failure. -PT OT evaluation 12/16/2020 -Patient has echo and showed 2 diastolic dysfunction. Cardiology consulted and recommend to start her on carvedilol. -Patient was discharged from [facility] to rehab with home oxygen but patient states she does not have enough oxygen at home -PT evaluated and recommend home health PT -We we will send the record from [facility]. Follow cardiology recommendations -Patient said she moved to [place] and she didn't have a permanent place yet. She can be discharged once she has a permanent residence with home health PT and will give her nasal cannula. 12/17/2020; patient does not have any chest pain or shortness of breath. Patient is on 2 L of oxygen. Patient can be discharged if permanent residence for home health. I called patient's son See Gaviria at [phone] but he did not coal picker his phone. Patient is asking for rehab placement. History Interval history: patient was seen and evaluated this morning Patient was on 3 L of oxygen She states she was using 2 L of oxygen at home. He does have the oxygen tank but does not have the nasal cannula Hospitalist Physical - Physical exam Narrative exam: Not in cardiopulmonary distress. The patient appeared well nourished and normally developed. Vital signs as documented. Head exam is unremarkable. No scleral icterus . Neck is without jugular venous distension, thyromegaly, or carotid bruits. Lungs are clear to auscultation. Cardiac exam reveals regular rate and Rhythm. Abdominal exam reveals normal bowel sounds, nontender, no organomegaly. Extremities are nonedematous and both femoral and pedal pulses are normal. 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 No focal weakness. - Constitutional Vitals: Temp Pulse Resp BP Pulse Ox 97.6 F 74 20 138/71 95 12/17/20 08:13 12/17/20 08:13 12/17/20 08:13 12/17/20 08:13 12/17/20 08:16 General appearance: Present: mild distress HEART Score - HEART Score Troponin: Troponin T < 0.010 ng/mL (0.00-0.029) 12/14/20 12:20 Results - Labs CBC & Chem 7: 12/14/20 12:20 12/17/20 05:23 Labs: Laboratory Last Values WBC 7.6 K/mm3 (4.5-11.0) 12/14/20 12:20 RBC 4.24 M/mm3 (3.65-5.03) 12/14/20 12:20 Hgb 12.3 gm/dl (10.1-14.3) 12/14/20 12:20 Hct 36.5 % (30.3-42.9) 12/14/20 12:20 MCV 86 fl (79-97) 12/14/20 12:20 MCH 29 pg (28-32) 12/14/20 12:20 MCHC 34 % (30-34) 12/14/20 12:20 RDW 14.9 % (13.2-15.2) 12/14/20 12:20 Plt Count 186 K/mm3 (140-440) 12/14/20 12:20 Lymph % (Auto) 36.1 % (13.4-35.0) H 12/14/20 12:20 [place] % (Auto) 11.6 % (0.0-7.3) H 12/14/20 12:20 Eos % (Auto) 3.6 % (0.0-4.3) 12/14/20 12:20 Baso % (Auto) 0.4 % (0.0-1.8) 12/14/20 12:20 Lymph # (Auto) 2.8 K/mm3 (1.2-5.4) 12/14/20 12:20 [place] # (Auto) 0.9 K/mm3 (0.0-0.8) H 12/14/20 12:20 Eos # (Auto) 0.3 K/mm3 (0.0-0.4) 12/14/20 12:20 Baso # (Auto) 0.0 K/mm3 (0.0-0.1) 12/14/20 12:20 Seg Neutrophils % 48.3 % (40.0-70.0) 12/14/20 12:20 Seg Neutrophils # 3.7 K/mm3 (1.8-7.7) 12/14/20 12:20 PT 15.3 Sec. (12.2-14.9) H 12/14/20 12:20 INR 1.16 (0.87-1.13) H 12/14/20 12:20 D-Dimer 157.23 ng/mlDDU (0-234) 12/14/20 12:20 Sodium 136 mmol/L (137-145) L 12/17/20 05:23 Potassium 4.1 mmol/L (3.6-5.0) D 12/17/20 05:23 Chloride 94.0 mmol/L (98-107) L 12/17/20 05:23 Carbon Dioxide 33 mmol/L (22-30) H 12/17/20 05:23 Anion Gap 13 mmol/L 12/17/20 05:23 BUN 16 mg/dL (7-17) 12/17/20 05:23 Creatinine 0.6 mg/dL (0.6-1.2) 12/17/20 05:23 Estimated GFR > 60 ml/min 12/17/20 05:23 BUN/Creatinine Ratio 27 % 12/17/20 05:23 Glucose 111 mg/dL (65-100) H 12/17/20 05:23 POC Glucose 118 mg/dL (70-105) H 12/16/20 20:36 Lactic Acid 1.20 mmol/L (0.7-2.0) 12/14/20 12:20 Calcium 10.1 mg/dL (8.4-10.2) 12/17/20 05:23 Magnesium 1.70 mg/dL (1.7-2.3) 12/14/20 14:56 Ferritin 58.4 ng/mL (10.0-200.0) 12/14/20 12:20 Total Bilirubin 0.50 mg/dL (0.1-1.2) 12/14/20 12:20 AST 17 units/L (5-40) 12/14/20 12:20 ALT 9 units/L (7-56) 12/14/20 12:20 Alkaline Phosphatase 53 units/L (35-129) 12/14/20 12:20 Lactate Dehydrogenase 152 units/L (91-180) 12/14/20 12:20 Total Creatine Kinase 20 units/L (30-135) L 12/14/20 12:20 Troponin T < 0.010 ng/mL (0.00-0.029) 12/14/20 12:20 C-Reactive Protein 0.20 mg/dL (0.00-1.30) 12/14/20 12:20 NT-Pro-B Natriuret Pep 887.9 pg/mL (0-900) 12/14/20 12:20 Total Protein 6.8 g/dL (6.3-8.2) 12/14/20 12:20 Albumin 3.7 g/dL (3.9-5) L 12/14/20 12:20 Albumin/Globulin Ratio 1.2 % 12/14/20 12:20 Procalcitonin < 0.05 ng/mL (<0.15) 12/14/20 12:20 Urine Color Yellow (Yellow) 12/15/20 07:24 Urine Turbidity Clear (Clear) 12/15/20 07:24 Urine pH 7.0 (5.0-7.0) 12/15/20 07:24 Ur Specific [place] 1.006 (1.003-1.030) 12/15/20 07:24 Urine Protein <15 mg/dl mg/dL (Negative) 12/15/20 07:24 Urine Glucose (UA) Neg mg/dL (Negative) 12/15/20 07:24 Urine Ketones Neg mg/dL (Negative) 12/15/20 07:24 Urine Blood Mod (Negative) 12/15/20 07:24 Urine Nitrite Pos (Negative) 12/15/20 07:24 Urine Bilirubin Neg (Negative) 12/15/20 07:24 Urine Urobilinogen < 2.0 mg/dL (<2.0) 12/15/20 07:24 Ur Leukocyte Esterase Tr (Negative) 12/15/20 07:24 Urine WBC (Auto) 3.0 /HPF (0.0-6.0) 12/15/20 07:24 Urine RBC (Auto) 8.0 /HPF (0.0-6.0) 12/15/20 07:24 Urine Bacteria (Auto) 1+ /HPF (Negative) 12/15/20 07:24 Nasal Screen MRSA (PCR) Indeterminate (Negative) 12/15/20 Unknown Coronavirus (PCR) Negative (Negative) 12/14/20 Unknown Calvin/IV: Voiding Method Bedside Commode Active Medications - Current Medications Current Medications: Generic Name Dose Route Start Last Admin Trade Name Freq PRN Reason Stop Dose Admin Acetaminophen 650 mg 12/14/20 14:50 12/16/20 21:43 Acetaminophen 325 Mg Tab PO 650 mg Q4H PRN Administration Pain MILD(1-3)/Fever >100.5/GOMEZ Hydrocodone Bitart/Acetaminophen 0.5 each 12/16/20 20:41 12/17/20 08:10 Hydrocodone/Acetaminophen 5-325 Mg Tab PO 0.5 each BID PRN Administration Pain, Moderate (4-6) Al Hydrox/Mg Hydrox/Simethicone 30 ml 12/15/20 21:16 12/15/20 22:11 Alum-Mag Hydroxide-Simethicone [phone]/5ml Oral Liqd 30 Ml PO 30 ml Q4H PRN Administration Indigestion Albuterol 2.5 mg 12/14/20 14:50 Albuterol 2.5 Mg/3 Ml Nebu IH Q4HRT PRN Shortness Of Breath Alprazolam 0.5 mg 12/14/20 14:52 Alprazolam 0.5 Mg Tab PO Q8H PRN Anxiety Apixaban 5 mg 12/16/20 22:00 12/16/20 21:44 Apixaban 5 Mg Tab PO 5 mg Q12HR KIERA Administration Divalproex Sodium 250 mg 12/16/20 22:00 12/16/20 21:44 Divalproex Er 250 Mg Tab PO 250 mg BID KIERA Administration Furosemide 20 mg 12/14/20 18:00 12/17/20 07:20 Furosemide 20 Mg/2 Ml Inj IV 20 mg BID@0600,1800 KIERA Administration Sodium Chloride 10 ml 12/14/20 22:00 12/16/20 21:45 Sodium Chloride 0.9% 10 Ml Flush Syringe IV 10 ml BID KIERA Administration Sodium Chloride 10 ml 12/14/20 14:50 12/15/20 11:43 Sodium Chloride 0.9% 10 Ml Flush Syringe IV 10 ml PRN PRN Administration LINE FLUSH Sotalol HCl 80 mg 12/16/20 22:00 12/16/20 21:44 Sotalol 80 Mg Tab PO 80 mg BID KIERA Administration
[2020-12-17] MEDS: APIXABAN 5 MG TAB PO SCH ×2 (09:24→22:06)
[2020-12-17] MEDS: DIVALPROEX ER 250 MG TAB PO SCH ×2 (09:25→22:06)
--- NOTE | 2020-12-17 10:54 | Progress Note ---
Assessment and Plan 1. Shortness of breath and dyspnea appears to have resolved 2. Essential hypertension 3. Seizure disorder 4. Chronic diastolic heart failure 5. COPD 6. Seizure disorder Plan. Admitting chest x-ray shows no acute pulmonary edema. Echocardiogram shows mild concentric LVH with abnormal diastolic relaxation normal global left ventricular ejection fraction. Patient's shortness of breath probably related to underlying chronic pulmonary pathology. Lexiscan MPI to rule out ischemic CAD Subjective Date of service: 12/17/20 Interval history: Patient is stable and denies any cardiac symptoms. Objective Vital Signs Temp Pulse Resp BP BP Pulse Ox 12/17/20 09:24 138/71 12/17/20 08:16 95 12/17/20 08:13 97.6 F 74 20 138/71 94 12/17/20 05:00 78 12/17/20 04:00 98.4 F 76 16 126/68 95 12/17/20 00:00 98.9 F 86 16 126/61 97 12/16/20 21:55 96 12/16/20 21:44 97 H 12/16/20 20:00 98.8 F 97 H 18 155/74 12/16/20 15:41 98.2 F 90 20 129/73 93 12/16/20 13:00 86 12/16/20 11:30 98.3 F 91 H 20 151/76 97 - Physical Examination General: Appears Well, No Apparent Distress HEENT: Positive: PERRL, Normocephaly, Mucus Membranes Moist Neck: Positive: neck supple, trachea midline. Negative: JVD/HJR Cardiac: Positive: Regular Rate, S1/S2, PMI, Dilated, Laterally Displaced. Negative: S3, S4 Lungs: Positive: clear to auscultation, No Wheeze, Rales, Rhonchi Neuro: Positive: Grossly Intact, No Lateralizing Findings Abdomen: Positive: Soft Extremities: Absent: edema - Labs and Meds Comprehensive Metabolic Panel 12/17/20 Range/Units 05:23 Sodium 136 L (137-145) mmol/L Potassium 4.1 D (3.6-5.0) mmol/L Chloride 94.0 L (98-107) mmol/L Carbon Dioxide 33 H (22-30) mmol/L BUN 16 (7-17) mg/dL Creatinine 0.6 (0.6-1.2) mg/dL Glucose 111 H (65-100) mg/dL Calcium 10.1 (8.4-10.2) mg/dL
[2020-12-18] MEDS: FUROSEMIDE 20 MG/2 ML INJ IV SCH (06:03)
[2020-12-18] MEDS ORDERED: REGADENOSON 0.4 MG/5 ML INJ IV ONE ×2 (08:26→11:51)
--- NOTE | 2020-12-18 08:39 | Progress Note ---
Assessment and Plan Assessment and plan: (1) Acute exacerbation of CHF (congestive heart failure) Current Visit: Yes Status: Acute Qualifiers: Heart failure type: diastolic Qualified Code(s): I50.33 - Acute on chronic diastolic (congestive) heart failure Plan to address problem: Strict I's/O, monitor urine output every shift, diuresis with Lasix, supplemental oxygen, pulse oximetry, afterload reduction, blood pressure control. (2) Acute dyspnea Current Visit: Yes Status: Acute Plan to address problem: Supplemental oxygen, pulse oximetry, home oxygen evaluation, (3) Hypertensive urgency Current Visit: Yes Status: Acute Plan to address problem: Monitor blood pressure every shift, continue medical management. (4) DVT prophylaxis Current Visit: Yes Status: Acute Plan to address problem: SCD to bilateral lower extremities while in bed, patient is ambulatory (5) Advance care planning Current Visit: Yes Status: Acute Plan to address problem: Disease education conducted, care plan discussed, diagnosis discussed, patient counseled regarding compliance with submental oxygen, patient is full code, guerrero ent knowledges understanding and agreement with care plan, +30 minutes. 12/15/20 -CHF; no echo in the chart. Echo ordered. -Patient moved from [facility] and need a customer agent. Cardiology consult placed. -We will get records from [facility]. Patient states she has history of congestive heart failure. -PT OT evaluation 12/16/2020 -Patient has echo and showed 2 diastolic dysfunction. Cardiology consulted and recommend to start her on carvedilol. -Patient was discharged from [facility] to rehab with home oxygen but patient states she does not have enough oxygen at home -PT evaluated and recommend home health PT -We we will send the record from [facility]. Follow cardiology recommendations -Patient said she moved to [place] and she didn't have a permanent place yet. She can be discharged once she has a permanent residence with home health PT and will give her nasal cannula. 12/17/2020; patient does not have any chest pain or shortness of breath. Patient is on 2 L of oxygen. Patient can be discharged if permanent residence for home health. I called patient's son See Gaviria at [phone] but he did not sheepskin pickler his phone. Patient is asking for rehab placement. 12/18/2020; continue with oxygen. Cardiology is following. Patient will have stress test. Patient can be discharged home with home health if stress test is negative. History Interval history: patient was seen and evaluated this morning Patient was on 3 L of oxygen She states she was using 2 L of oxygen at home. He does have the oxygen tank but does not have the nasal cannula Hospitalist Physical - Physical exam Narrative exam: Not in cardiopulmonary distress. The patient appeared well nourished and normally developed. Vital signs as documented. Head exam is unremarkable. No scleral icterus . Neck is without jugular venous distension, thyromegaly, or carotid bruits. Lungs are clear to auscultation. Cardiac exam reveals regular rate and Rhythm. Abdominal exam reveals normal bowel sounds, nontender, no organomegaly. Extremities are nonedematous and both femoral and pedal pulses are normal. 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 No focal weakness. - Constitutional Vitals: Temp Pulse Resp BP Pulse Ox 98.3 F 77 18 120/70 95 12/18/20 08:04 12/18/20 08:04 12/18/20 08:04 12/18/20 08:04 12/18/20 08:04 General appearance: Present: mild distress HEART Score - HEART Score Troponin: Troponin T < 0.010 ng/mL (0.00-0.029) 12/14/20 12:20 Results - Labs CBC & Chem 7: 12/14/20 12:20 12/17/20 05:23 Labs: Laboratory Last Values WBC 7.6 K/mm3 (4.5-11.0) 12/14/20 12:20 RBC 4.24 M/mm3 (3.65-5.03) 12/14/20 12:20 Hgb 12.3 gm/dl (10.1-14.3) 12/14/20 12:20 Hct 36.5 % (30.3-42.9) 12/14/20 12:20 MCV 86 fl (79-97) 12/14/20 12:20 MCH 29 pg (28-32) 12/14/20 12:20 MCHC 34 % (30-34) 12/14/20 12:20 RDW 14.9 % (13.2-15.2) 12/14/20 12:20 Plt Count 186 K/mm3 (140-440) 12/14/20 12:20 Lymph % (Auto) 36.1 % (13.4-35.0) H 12/14/20 12:20 [place] % (Auto) 11.6 % (0.0-7.3) H 12/14/20 12:20 Eos % (Auto) 3.6 % (0.0-4.3) 12/14/20 12:20 Baso % (Auto) 0.4 % (0.0-1.8) 12/14/20 12:20 Lymph # (Auto) 2.8 K/mm3 (1.2-5.4) 12/14/20 12:20 [place] # (Auto) 0.9 K/mm3 (0.0-0.8) H 12/14/20 12:20 Eos # (Auto) 0.3 K/mm3 (0.0-0.4) 12/14/20 12:20 Baso # (Auto) 0.0 K/mm3 (0.0-0.1) 12/14/20 12:20 Seg Neutrophils % 48.3 % (40.0-70.0) 12/14/20 12:20 Seg Neutrophils # 3.7 K/mm3 (1.8-7.7) 12/14/20 12:20 PT 15.3 Sec. (12.2-14.9) H 12/14/20 12:20 INR 1.16 (0.87-1.13) H 12/14/20 12:20 D-Dimer 157.23 ng/mlDDU (0-234) 12/14/20 12:20 Sodium 136 mmol/L (137-145) L 12/17/20 05:23 Potassium 4.1 mmol/L (3.6-5.0) D 12/17/20 05:23 Chloride 94.0 mmol/L (98-107) L 12/17/20 05:23 Carbon Dioxide 33 mmol/L (22-30) H 12/17/20 05:23 Anion Gap 13 mmol/L 12/17/20 05:23 BUN 16 mg/dL (7-17) 12/17/20 05:23 Creatinine 0.6 mg/dL (0.6-1.2) 12/17/20 05:23 Estimated GFR > 60 ml/min 12/17/20 05:23 BUN/Creatinine Ratio 27 % 12/17/20 05:23 Glucose 111 mg/dL (65-100) H 12/17/20 05:23 POC Glucose 118 mg/dL (70-105) H 12/16/20 20:36 Lactic Acid 1.20 mmol/L (0.7-2.0) 12/14/20 12:20 Calcium 10.1 mg/dL (8.4-10.2) 12/17/20 05:23 Magnesium 1.70 mg/dL (1.7-2.3) 12/14/20 14:56 Ferritin 58.4 ng/mL (10.0-200.0) 12/14/20 12:20 Total Bilirubin 0.50 mg/dL (0.1-1.2) 12/14/20 12:20 AST 17 units/L (5-40) 12/14/20 12:20 ALT 9 units/L (7-56) 12/14/20 12:20 Alkaline Phosphatase 53 units/L (35-129) 12/14/20 12:20 Lactate Dehydrogenase 152 units/L (91-180) 12/14/20 12:20 Total Creatine Kinase 20 units/L (30-135) L 12/14/20 12:20 Troponin T < 0.010 ng/mL (0.00-0.029) 12/14/20 12:20 C-Reactive Protein 0.20 mg/dL (0.00-1.30) 12/14/20 12:20 NT-Pro-B Natriuret Pep 887.9 pg/mL (0-900) 12/14/20 12:20 Total Protein 6.8 g/dL (6.3-8.2) 12/14/20 12:20 Albumin 3.7 g/dL (3.9-5) L 12/14/20 12:20 Albumin/Globulin Ratio 1.2 % 12/14/20 12:20 Procalcitonin < 0.05 ng/mL (<0.15) 12/14/20 12:20 Urine Color Yellow (Yellow) 12/15/20 07:24 Urine Turbidity Clear (Clear) 12/15/20 07:24 Urine pH 7.0 (5.0-7.0) 12/15/20 07:24 Ur Specific [place] 1.006 (1.003-1.030) 12/15/20 07:24 Urine Protein <15 mg/dl mg/dL (Negative) 12/15/20 07:24 Urine Glucose (UA) Neg mg/dL (Negative) 12/15/20 07:24 Urine Ketones Neg mg/dL (Negative) 12/15/20 07:24 Urine Blood Mod (Negative) 12/15/20 07:24 Urine Nitrite Pos (Negative) 12/15/20 07:24 Urine Bilirubin Neg (Negative) 12/15/20 07:24 Urine Urobilinogen < 2.0 mg/dL (<2.0) 12/15/20 07:24 Ur Leukocyte Esterase Tr (Negative) 12/15/20 07:24 Urine WBC (Auto) 3.0 /HPF (0.0-6.0) 12/15/20 07:24 Urine RBC (Auto) 8.0 /HPF (0.0-6.0) 12/15/20 07:24 Urine Bacteria (Auto) 1+ /HPF (Negative) 12/15/20 07:24 Nasal Screen MRSA (PCR) Indeterminate (Negative) 12/15/20 Unknown Coronavirus (PCR) Negative (Negative) 12/14/20 Unknown Calvin/IV: Voiding Method External Female Catheter Active Medications - Current Medications Current Medications: Generic Name Dose Route Start Last Admin Trade Name Freq PRN Reason Stop Dose Admin Acetaminophen 650 mg 12/14/20 14:50 12/16/20 21:43 Acetaminophen 325 Mg Tab PO 650 mg Q4H PRN Administration Pain MILD(1-3)/Fever >100.5/GOMEZ Hydrocodone Bitart/Acetaminophen 0.5 each 12/16/20 20:41 12/17/20 22:05 Hydrocodone/Acetaminophen 5-325 Mg Tab PO 0.5 each BID PRN Administration Pain, Moderate (4-6) Al Hydrox/Mg Hydrox/Simethicone 30 ml 12/15/20 21:16 12/15/20 22:11 Alum-Mag Hydroxide-Simethicone [phone]/5ml Oral Liqd 30 Ml PO 30 ml Q4H PRN Administration Indigestion Albuterol 2.5 mg 12/14/20 14:50 Albuterol 2.5 Mg/3 Ml Nebu IH Q4HRT PRN Shortness Of Breath Alprazolam 0.5 mg 12/14/20 14:52 Alprazolam 0.5 Mg Tab PO Q8H PRN Anxiety Apixaban 5 mg 12/16/20 22:00 12/17/20 22:06 Apixaban 5 Mg Tab PO 5 mg Q12HR KIERA Administration Divalproex Sodium 250 mg 12/16/20 22:00 12/17/20 22:06 Divalproex Er 250 Mg Tab PO 250 mg BID KIERA Administration Furosemide 20 mg 12/14/20 18:00 12/18/20 06:03 Furosemide 20 Mg/2 Ml Inj IV 20 mg BID@0600,1800 KIERA Administration Sodium Chloride 10 ml 12/14/20 22:00 12/17/20 22:06 Sodium Chloride 0.9% 10 Ml Flush Syringe IV 10 ml BID KIERA Administration Sodium Chloride 10 ml 12/14/20 14:50 12/15/20 11:43 Sodium Chloride 0.9% 10 Ml Flush Syringe IV 10 ml PRN PRN Administration LINE FLUSH Sotalol HCl 80 mg 12/16/20 22:00 12/17/20 22:04 Sotalol 80 Mg Tab PO 80 mg BID KIERA Administration
--- NOTE | 2020-12-18 11:46 | Progress Note ---
Subjective Date of service: 12/18/20 Interval history: FEELS BETTER Objective Vital Signs Temp Pulse Pulse Resp BP Pulse Ox 12/18/20 08:04 98.3 F 77 18 120/70 95 12/18/20 05:00 71 12/18/20 03:46 98.4 F 71 18 126/57 95 12/17/20 23:51 98.0 F 78 18 122/56 94 12/17/20 22:04 81 125/78 12/17/20 21:30 95 12/17/20 21:00 81 12/17/20 20:48 71 18 97 12/17/20 19:22 98.4 F 79 18 133/62 93 12/17/20 17:08 98.3 F 71 20 145/72 97 12/17/20 13:00 69 12/17/20 11:54 98.1 F 68 20 118/60 93 - Physical Examination General: Appears Well, No Apparent Distress HEENT: Positive: PERRL, Normocephaly, Mucus Membranes Moist Neck: Positive: neck supple, trachea midline. Negative: JVD/HJR Cardiac: Positive: Regular Rate Lungs: Positive: clear to auscultation Neuro: Positive: Grossly Intact, No Lateralizing Findings Abdomen: Positive: Soft Extremities: Absent: edema
--- NOTE | 2020-12-18 11:47 | Discharge Summary ---
Providers - Providers Date of Admission: 12/15/20 16:28 Date of discharge: 12/18/20 Attending physician: DOUGLAS FERGUSON MD 12/15/20 08:45 Consult to Physician [CONS] Routine Comment: Consulting Provider: NATTY CHANG Physician Instructions: Reason For Exam: CHF exacerbation 12/15/20 12:52 Physical Therapy Evaluation and Treat [CONS] Routine Comment: Reason For Exam: Evaluate and treat 12/15/20 12:53 Occupational Therapy Evaluate and Treat [CONS] Routine Comment: Reason For Exam: Evaluate and treat Primary care physician: [employer] INSPECTOR Hospitalization Reason for admission: CHF exacerbation, abnormal stress test Condition: Stable Hospital course: History of present illness: 85 YO Female with CHF, HTN, Seizure Disorder, Chronic Respiratory Failure noncompliant with home oxygen presents to ED for evaluation. Patient reports "I feel short of breath". Patient states that she has experienced shortness of breath and generalized weakness over the past 2 weeks with worsening symptoms over the same timeframe. Pt acknowledges noncompliance with home oxygen. Ruby ent knowledges dyspnea on exertion, dyspnea at rest, decreased exercise tolerance, orthopnea, as well as paroxysmal nocturnal dyspnea. EMS notified and upon arrival the patient was found to be in distress and subsequent transported to [facility] for further care and evaluation of the above aforementioned symptoms. The patient was seen and evaluated in the emergency department. All lab and imaging studies reviewed. Patient found to have symptoms consistent with CHF decompensation suspected secondary to lack of supplemental oxygen. Patient placed in observation status and admitted to telemetry floor. Patient placed on submental oxygen. Patient denies fever, chills, chest pain, palpitation, productive cough, skin rash, recent ill contact, or known exposure to COVID-19. No prior admission for review. All medication listed at time of admission has been reconciled. Advanced care planning conducted in ED. Hospital course (1) Acute exacerbation of CHF (congestive heart failure) Current Visit: Yes Status: Acute Qualifiers: Heart failure type: diastolic Qualified Code(s): I50.33 - Acute on chronic diastolic (congestive) heart failure Plan to address problem: Strict I's/O, monitor urine output every shift, diuresis with Lasix, supplemental oxygen, pulse oximetry, afterload reduction, blood pressure control. (2) Acute dyspnea Current Visit: Yes Status: Acute Plan to address problem: Supplemental oxygen, pulse oximetry, home oxygen evaluation, (3) Hypertensive urgency Current Visit: Yes Status: Acute Plan to address problem: Monitor blood pressure every shift, continue medical management. (4) DVT prophylaxis Current Visit: Yes Status: Acute Plan to address problem: SCD to bilateral lower extremities while in bed, patient is ambulatory (5) Advance care planning Current Visit: Yes Status: Acute Plan to address problem: Disease education conducted, care plan discussed, diagnosis discussed, patient counseled regarding compliance with submental oxygen, patient is full code, patient knowledges understanding and agreement with care plan, +30 minutes. 12/15/20 -CHF; no echo in the chart. Echo ordered. -Patient moved from [facility] and need a ethylbenzene converter operator. Cardiology consult placed. -We will get records from [facility]. Patient states she has history of congestive heart failure. -PT OT evaluation 12/16/2020 -Patient has echo and showed 2 diastolic dysfunction. Cardiology consulted and recommend to start her on carvedilol. -Patient was discharged from [facility] to rehab with home oxygen but patient states she does not have enough oxygen at home -PT evaluated and recommend home health PT -We we will send the record from [facility]. Follow cardiology recommendations -Patient said she moved to [place] and she didn't have a permanent place yet. She can be discharged once she has a permanent residence with home health PT and will give her nasal cannula. 12/17/2020; patient does not have any chest pain or shortness of breath. Patient is on 2 L of oxygen. Patient can be discharged if permanent residence for home health. I called patient's son See Gaviria at [phone] but he did not turkey picker his phone. Patient is asking for rehab placement. 12/18/2020; continue with oxygen. Cardiology is following. Patient will have stress test. Patient can be discharged home with home health if stress test is negative. Stress test was done and showed small perfusion defect suggestive of ischemia. Dr Gatica the ethylbenzene converter operator and told me about the result and he said medical management and follow up in his office. He said add static on current medications. No need for plavix or aspirin. Patient is on eliquis. Patient she has home oxygen and given nasal cannula tube. Patient was hemodynamically stable at the time of discharge. Disposition: [id number] HOME UNDER HOME [facility] Final Discharge Diagnosis (Prints w/discharge instructions): diastolic CHF exacerbation. On home oxygen. abnormal stress test Time spent for discharge: 35-minutes - Discharge Diagnoses (1) Acute dyspnea Status: Acute (2) Acute exacerbation of CHF (congestive heart failure) Status: Acute Qualifiers: Heart failure type: diastolic Qualified Code(s): I50.33 - Acute on chronic diastolic (congestive) heart failure (3) Hypertensive urgency Status: Acute (4) Hypomagnesemia Status: Acute Core Measure Documentation - Palliative Care Palliative Care/ Comfort Measures: Not Applicable - Core Measures Any of the following diagnoses?: none Exam - Physical Exam Narrative exam: Not in cardiopulmonary distress. The patient appeared well nourished and normally developed. Vital signs as documented. Head exam is unremarkable. No scleral icterus . Neck is without jugular venous distension, thyromegaly, or carotid bruits. Lungs are clear to auscultation. Cardiac exam reveals regular rate and Rhythm. Abdominal exam reveals normal bowel sounds, nontender, no organomegaly. Extremities are nonedematous and both femoral and pedal pulses are normal. FARMER GENERAL: Alert and oriented 3. No focal weakness. - Constitutional Vitals: Temp Pulse Resp BP Pulse Ox 98.3 F 77 18 120/70 95 12/18/20 08:04 12/18/20 08:04 12/18/20 08:04 12/18/20 08:04 12/18/20 08:04 Plan Activity: advance as tolerated Weight Bearing Status: Weight Bear as Tolerated Diet: low salt Special Instructions: home oxygen via (Patient need nasal cannula at discharge.) Durable Medical Equipment Needed Upon Discharge: Oxygen (Patient need only nasal cannula) Follow up with: PEPE DOMINGUEZ MD [Primary Care Provider] - 3-5 Days ENE BLAIR MD [Staff Physician] - 7 Days Prescriptions: AtorvaSTATin [Lipitor] 20 mg PO QHS #30 tab sotaloL [Betapace] 1 tab PO BID #60 Divalproex ER [Depakote ER] 250 mg PO BID #60 Apixaban [Eliquis] 5 mg PO BID #60 Potassium Chloride [K-Dur] 20 meq PO QDAY #30 tablet Furosemide [Lasix] 20 mg PO QDAY #60 tablet HYDROcodone/ACETAMINOPHEN [Verdrocet 2.5-325 mg TAB] 1 each PO PRN #12
[2020-12-18] MEDS ORDERED: SODIUM CHLORIDE 0.9% 500 ML 500 ML ONE (12:11)
[2020-12-18] MEDS ORDERED: SODIUM CHLORIDE 0.9% 250ML 250 ML IV ONE (12:29)
[2020-12-18] MEDS: APIXABAN 5 MG TAB PO SCH (13:20)
[2020-12-18] MEDS: DIVALPROEX ER 250 MG TAB PO SCH (13:20)
[2020-12-18] MEDS: HYDROcodone/ACETAMINOPHEN 5-325 MG TAB PO PRN (13:25)
[2020-12-18 16:56] VITALS: BP 119/64
== END 2020-12-18 18:50 | disposition home health service (06) | DRG 292 ==
LOC: ED 11:40 → 4A 14:50 → OBSVTOIN 12-15 16:28
PROVIDERS: ADMIT Internal Medicine; ATTEND Internal Medicine
PROC: 4A033R1 Measurement of Arterial Saturation, Peripheral, Percutaneous Approach (ICD-10-PCS; principal; 2020-12-14)
DX: I11.0 Hypertensive heart disease with heart failure (principal); J96.10 Chronic respiratory failure, unspecified whether with hypoxia or hypercapnia; I16.0 Hypertensive urgency; I50.33 Acute on chronic diastolic (congestive) heart failure; Z20.822 Contact with and (suspected) exposure to COVID-19; G40.909 Epilepsy, unspecified, not intractable, without status epilepticus; J44.9 Chronic obstructive pulmonary disease, unspecified; E83.42 Hypomagnesemia; Z82.49 Family history of ischemic heart disease and other diseases of the circulatory system; Z99.81 Dependence on supplemental oxygen; Z88.2 Allergy status to sulfonamides; Z79.899 Other long term (current) drug therapy
CPT/HCPCS: 36415; 71045; 78452; 80048; 80053; 81001; 82140; 82550; 82728; 82962; 83615; 83735; 83880; 84145; 84484; 85025; 85379; 85610; 86140; 87641; 93005; 93017; 93306; 96365; 96375; G0378; A9502; J0360; J1940; J2785; J3475; J7040; U0003